=== PATIENT | female | born 1995 | race Caucasian/White ===

== ENCOUNTER 2018-12-13 22:59 | Emergency (ER) | payer MEDICAID ==
[~2018-12-13] VITALS: Ht 170.2 cm; Wt 68.0 kg
[2018-12-13 23:17] VITALS: BP_SYST 132
--- NOTE | 2018-12-13 23:21 | NUR ---
Patient triaged and placed in waiting room. VSS and patient appears in no acute distress at this time. Accompanied by BOYFRIEND AND MOTHER IN LAW, awaiting available bed, and MD notified of need for MSE.
--- NOTE | 2018-12-13 23:37 | NUR ---
Patient to ER bed 07 to gown for evaluation. Side rails up. Report given to OSCAR Feliz
[2018-12-13] MEDS ORDERED: PROCHLORPERAZINE EDISYLATE 10 MG/2 ML VIAL IVP ONE (23:45)
[2018-12-13] MEDS ORDERED: DIPHENHYDRAMINE INJ 50 MG/ML VIAL IVP ONE (23:45)
[2018-12-13] MEDS ORDERED: NACL 0.9% 1,000 ML IV ONE (23:45)
--- NOTE | 2018-12-13 23:45 | NUR ---
Pt C/O headache, nausea, vomiting and light sensitivity x 2 days. Pt has taken Excedrin with minimal relief. Denies any other symptoms at this time. Will continue to monitor.
--- NOTE | 2018-12-13 23:50 | NUR ---
# 20 gauge angiocath placed to LT AC. Use of asceptic technique. Opsite placed over site. Blood return noted. Flushed with 10 cc of normal saline. No evidence of infiltration noted. Patient tolerated well.
--- NOTE | 2018-12-14 00:25 | NUR ---
Pt is resting in bed and states medications has helped relieve her headache. Will continue to monitor
[2018-12-14 00:52] VITALS: BP_SYST 128
--- NOTE | 2018-12-14 00:53 | NUR ---
Patient given written and verbal discharge instructions and verbalizes understanding. ER MD discussed with patient the results and treatment provided. Patient in stable condition. ID arm band removed. IV catheter removed intact and dressing applied, no active bleeding. Rx of Motrin, Zofran and [place] given. Patient educated on pain management and to follow up with PMD. Pain Scale 0. Opportunity for questions provided and answered. Medication side effect fact sheet provided.
== END 2018-12-14 00:53 | disposition home or self-care (01) ==
LOC: SED 22:59
DX: G43.909 Migraine, unspecified, not intractable, without status migrainosus (principal); R11.2 Nausea with vomiting, unspecified; Z88.0 Allergy status to penicillin; Z88.1 Allergy status to other antibiotic agents
CPT/HCPCS: 81002; 96361; 96374; 96375; 99283; J0780; J1200; J7030